=== PATIENT | female | born 1975 | race Asian ===

== ENCOUNTER 2021-01-15 14:38 | Emergency (ER) | payer OTHER ==
--- NOTE | 2021-01-15 15:29 | ED Physician Documentation ---
PD HPI CHEST PAIN - Stated complaint Stated Complaint: CP - Chief complaint Chief Complaint: Cardiac - History obtained from History obtained from: Patient - Additional information Additional information: 45-year-old woman developed left-sided sharp chest pain while traveling back from [place] by car yesterday. It is gone now. It is not associated with shortness of breath, pedal edema, calf pain. No history of DVT or PE. She is not anticoagulated. She is pain-free now. She has no history of heart problems but has had similar episodes in the past worked up by her primary care physician without pertinent positive results. She has a history of hypertension. She does not smoke. Her father may have had some heart problems in his 50s. Review of Systems Ten Systems: 10 systems reviewed and negative Constitutional: denies: Fever, Myalgias, Sweats Respiratory: denies: Dyspnea, Cough PD PAST MEDICAL HISTORY - Present Medications Home Medications: Ambulatory Orders Medication Instructions Recorded Confirmed Lisinopril [Zestril] 1 tab PO DAILY 01/15/21 01/15/21 amLODIPine [Norvasc] 1 tab PO DAILY 01/15/21 01/15/21 hydroCHLOROthiazide [Hydrodiuril] 1 tab PO DAILY 01/15/21 01/15/21 - Allergies Allergies/Adverse Reactions: Allergies Allergy/AdvReac Type Severity Reaction Status Date / Time No Known Drug Allergies Allergy Verified 01/15/21 14:46 PD ED PE NORMAL - Vitals Vital signs reviewed: Yes - General General: Alert and oriented X 3, No acute distress - HEENT HEENT: PERRL, EOMI - Neck Neck: Supple, no meningeal sign, No bony TTP - Cardiac Cardiac: RRR, No murmur - Respiratory Respiratory: No respiratory distress, Clear bilaterally - Abdomen Abdomen: Non tender - Back Back: No CVA TTP, No spinal TTP - Derm Derm: Normal color, Warm and dry - Extremities Extremities: No edema, No calf tenderness / cord - Neuro Neuro: Alert and oriented X 3, Normal speech Results - Vitals Vitals: Vital Signs - 24 hr 01/15/21 01/15/21 01/15/21 14:46 15:20 15:30 Temperature 36.5 C Heart Rate 86 84 84 Respiratory 16 26 H 26 H Rate Blood Pressure 150/93 H 151/90 H 143/83 H O2 Saturation 99 96 01/15/21 01/15/21 16:17 16:30 Temperature Heart Rate 78 77 Respiratory 21 24 Rate Blood Pressure 142/88 H 143/89 H O2 Saturation 97 98 Oxygen O2 Source Room air - EKG (time done) 1443 Rate: Rate (enter#) (79) Rhythm: NSR, LAE [place]: LAD Intervals: Normal [place] Ischemia: Non specific changes. No: ST elevation c/w ischemia, ST depression - Labs Labs: Laboratory Tests 01/15/21 01/15/21 01/15/21 15:42 15:42 15:42 WBC 6.9 RBC 6.09 H Hgb 10.3 L Hct 32.6 L MCV 53.5 L MCH 16.9 L MCHC 31.6 L RDW 25.2 H Plt Count 277 Neut # (Auto) 4.5 Lymph # (Auto) 1.7 [place] # (Auto) 0.4 Eos # (Auto) 0.2 Baso # (Auto) 0.0 Absolute Nucleated RBC 0.00 Nucleated RBC % 0.0 Manual Slide Review Indicated WBC Morphology NORMAL APPEARANCE Platelet Estimate NORMAL (130-450,000) Platelet Morphology NORMAL APPEARANCE RBC Morph Micro Appear 1+ SPHEROCYTES D-Dimer Sodium 136 Potassium 3.4 L Chloride 100 L Carbon Dioxide 26 Anion Gap 10.0 BUN 13 Creatinine 0.8 Estimated GFR (MDRD) 78 L Glucose 116 H Calcium 9.2 Total Bilirubin 0.8 AST 23 ALT 35 Alkaline Phosphatase 45 Troponin I High Sens 5.4 Total Protein 7.2 Albumin 4.2 Globulin 3.0 Albumin/Globulin Ratio 1.4 Lipase 25 01/15/21 15:42 WBC RBC Hgb Hct MCV MCH MCHC RDW Plt Count Neut # (Auto) Lymph # (Auto) [place] # (Auto) Eos # (Auto) Baso # (Auto) Absolute Nucleated RBC Nucleated RBC % Manual Slide Review WBC Morphology Platelet Estimate Platelet Morphology RBC Morph Micro Appear D-Dimer 650.8 H Sodium Potassium Chloride Carbon Dioxide Anion Gap BUN Creatinine Estimated GFR (MDRD) Glucose Calcium Total Bilirubin AST ALT Alkaline Phosphatase Troponin I High Sens Total Protein Albumin Globulin Albumin/Globulin Ratio Lipase - Rads (name of study) CT PA Radiology: EMP read contemporaneously (negative) PD MEDICAL DECISION MAKING - ED course ED course: 45 yom woman with sharp L side CP starting during car travel. D-Dimer positive, but CTPA neg. No evidence of ACS, Departure - Departure Disposition: Home, Self Care Clinical Impression: Atypical chest pain Condition: Good Record reviewed to determine appropriate education?: Yes Instructions: ED Chest Pain Atypical Unkn Cause Comments: You were anemic today, your hemoglobin is 10.3 and your hematocrit is 32.6. Please follow-up with your doctor to discuss. You can take an [id number] iron supplement. Your D-dimer was elevated but your CT was negative so there is no blood clot in your chest. No evidence of active heart disease. Return for new or worsening symptoms. Discharge Date/Time: 01/15/21 17:47
--- NOTE | 2021-01-15 15:56 | XRAY Report ---
PROCEDURE: Chest 1 View X-Ray INDICATIONS: Chest pain TECHNIQUE: One view of the chest was acquired. COMPARISON: None. FINDINGS: Surgical changes and devices: None. Lungs and pleura: No pleural effusions or pneumothorax. Mediastinum: Mediastinal contours appear normal. Heart size is normal. Bones and chest wall: No suspicious bony lesions. Overlying soft tissues appear unremarkable. IMPRESSION: 1. No acute cardiopulmonary disease. Reviewed by: Rolly Tse MD on 01/15/2021 3:55 PM PDT Approved by: Rolly Tse MD on 01/15/2021 3:55 PM PDT Station ID: [id number]
[2021-01-15 15:58] LABS: BASOPHILS % (AUTO) 0.6 %; EOSINOPHILS # (AUTO) 0.2 10^3/uL (0.0-0.7); EOSINOPHILS % (AUTO) 2.9 %; HCT - HEMATOCRIT 32.6 % (37.0-47.0); HGB - HEMOGLOBIN 10.3 g/dL (12.0-16.0); LYMPHOCYTES # (AUTO) 1.7 10^3/uL (1.5-3.5); LYMPHOCYTES % (AUTO) 24.6 %; MEAN CORPUSCULAR HEMOGLOBIN 16.9 pg (27.0-31.0); MEAN CORPUSCULAR HGB CONC 31.6 g/dL (32.0-36.0); MEAN CORPUSCULAR VOLUME 53.5 fL (81.0-99.0); MONOCYTES # (AUTO) 0.4 10^3/uL (0.0-1.0); MONOCYTES % (AUTO) 6.1 %; NEUTROPHILS # (AUTO) 4.5 10^3/uL (1.5-6.6); NEUTROPHILS % (AUTO) 65.2 %; PLT - PLATELET COUNT 277 10^3/uL (130-450); RED BLOOD COUNT 6.09 10^6/uL (4.20-5.40); RED CELL DISTRIBUTION WIDTH 25.2 % (12.0-15.0); WHITE BLOOD COUNT 6.9 x10^3/uL (4.8-10.8)
[2021-01-15] MEDS ORDERED: IOVERSOL 320 100 ML VIAL IVP ONE ×2 (16:19→17:17)
[2021-01-15 16:24] LABS: ALBUMIN 4.2 g/dL (3.2-5.5); ALBUMIN/GLOBULIN RATIO 1.4 (1.0-2.2); BILIRUBIN,TOTAL 0.8 mg/dL (0.2-1.0); CALCIUM 9.2 mg/dL (8.5-10.3); CREATININE 0.8 mg/dL (0.4-1.0); POTASSIUM 3.4 mmol/L (3.5-5.0); TOTAL PROTEIN 7.2 g/dL (6.7-8.2)
[2021-01-15 16:50] LABS: PLATELET ESTIMATE, MANUAL NORMAL (130-450,000) (NORMAL); PLATELET MORPHOLOGY NORMAL APPEARANCE (NORMAL); SLIDE REVIEW? Indicated
[2021-01-15 16:53] LABS: WBC MORPHOLOGY (MULTIPLE) NORMAL APPEARANCE (NORMAL)
--- NOTE | 2021-01-15 17:26 | CT Report ---
PROCEDURE: ANGIO CHEST W/WO INDICATIONS: Chest pain CONTRAST: IV CONTRAST: Optiray 320 ml: 80 PO CONTRAST: *NO PO CONTRAST TECHNIQUE: After the administration of intravenous contrast, 2 mm thick sections acquired from the pulmonary api julio to the posterior costophrenic angles. 3-dimensional maximum intensity projection (MIP) coronal a nd sagittal reformats were then acquired through the thorax. For radiation dose reduction, the follow ing was used: automated exposure control, adjustment of mA and/or kV according to patient size. COMPARISON: X-ray 1 view, 02/2021. FINDINGS: Image quality: Excellent. Pulmonary arteries: Pulmonary arteries are normal in size, and demonstrate no intraluminal filling d efects to suggest central pulmonary embolism. Lungs and pleura: Lungs are clear. No pleural effusions or pneumothorax. Central and peripheral ai rways are patent. Mediastinum: Heart size is normal, without pericardial effusion. No mediastinal or hilar adenopathy . Thoracic aorta is normal in caliber and enhancement. Esophagus is normal in caliber. Small hiatal hernia. Bones and chest wall: No suspicious bony lesions. Ribs and thoracic spine appear intact throughout. No axillary or supraclavicular adenopathy. The thyroid is normal in size and there are no incident al findings. Abdomen: Visualized upper abdominal solid organs appear normal in the early arterial phase of enhanc ement. IMPRESSION: 1. No evidence for pulmonary embolism. Reviewed by: Akash Chapman MD on 01/15/2021 5:24 PM PDT Approved by: Akash Chapman MD on 01/15/2021 5:24 PM PDT Station ID: [id number]
[2021-01-15 17:51] VITALS: BP 143/89
== END 2021-01-15 17:47 | disposition home or self-care (01) ==
LOC: ED 14:38
DX: R07.89 Other chest pain (principal); I10 Essential (primary) hypertension; R79.89 Other specified abnormal findings of blood chemistry; D64.9 Anemia, unspecified; Z82.49 Family history of ischemic heart disease and other diseases of the circulatory system
CPT/HCPCS: 36415; 71045; 71275; 80053; 83690; 84484; 85025; 85379; 93005; 99283; 99284; Q9967